=== PATIENT | female | born 1970 | race Caucasian/White ===

== ENCOUNTER 2016-09-17 23:45 | Observation (INO) | payer OTHER ==
[~2016-09-17 23:45] MED LIST: BP MED; CIPRO500 M2 PO; HYDROCHLOROTHIA25 M1 PO; NORCO 5-325 TA1 EACH PO; PERCOCET 5-3251 EACH PO
[2016-09-18 00:26] LABS: BASO % 0.3 % (0-2); EOS % 0.9 % (0-7); EOSINOPHIL ABSOLUTE COUNT 0.1 tho/cmm (0.0-0.7); HCT-HEMATOCRIT 29.8 % (34.0-49.0); IMMATURE GRANULOCYTES ABSOLUTE 0.02 tho/cmm (0-0.03); IMMATURE GRANULOCYTES PERCENT 0.2 % (0-0.3); LYMPH % 23.8 % (20-45); LYMPH ABSOLUTE COUNT 2.8 tho/cmm (0.8-4.5); MCHC MEAN CORPUSCULAR HGB CONC 30.2 % (32.0-36.0); MCV (MEAN CELL VOLUME) 63.7 fl (82.0-96.0); MONOCYTE ABSOLUTE COUNT 0.5 tho/cmm (0.0-1.2); NEUTROPHIL ABSOLUTE COUNT 8.2 tho/cmm (1.6-8.0); NEUTROPHIL-AUTOMATED 8.2 tho/cmm (1.6-8.0); NEUTROPHILS % 70.8 % (40-80); PLATELET COUNT 430 tho/cmm (150-450); RED BLOOD COUNT 4.68 mil/cmm (4.00-5.20); RED CELL DISTRIBUTION WIDTH 18.9 % (12.4-16.4); WHITE BLOOD COUNT 11.6 tho/cmm (4.0-10.0)
[2016-09-18 00:27] LABS: MCH (MEAN CORPUSCULAR HGB) 19.2 pg (28.0-32.0)
[2016-09-18 00:41] LABS: ALB/GLOB RATIO 0.9 (0.8-2.0); ALBUMIN 3.4 g/dl (3.5-5.0); ALKALINE PHOSPHATASE 54 U/L (33-138); ALT/SGPT 19 U/L (12-78); BILIRUBIN,TOTAL 0.3 mg/dl (0-1.5); BLOOD UREA NITROGEN 12 mg/dl (6-24); CALCIUM 8.3 mg/dl (8.5-10.5); CARBON DIOXIDE-VENOUS 26 mmol/L (22-32); CHLORIDE 105 mmol/l (96-110); CREATININE 1.05 mg/dl (0.50-1.10); GLUCOSE 108 mg/dL (70-110); LIPASE 60 U/L (73-393); SODIUM 140 mmol/L (135-145); eGFR VALUE FOR BLACK 74 mL/Min
[2016-09-18 00:43] LABS: ANION GAP 13 mmol/L (0-20); AST/SGOT 18 U/L (10-40); POTASSIUM 3.5 mmol/L (3.7-5.1)
[2016-09-18 02:28] LABS: URINE BILIRUBIN NEGATIVE (NEG); URINE BLOOD LARGE (NEG); URINE GLUCOSE (UA) NEGATIVE (NEG); URINE KETONE NEGATIVE (NEG); URINE LEUKOCYTE ESTERASE NEGATIVE (NEG); URINE NITRITE NEGATIVE (NEG); URINE PROTEIN SMALL (NEG)
[2016-09-18 02:36] LABS: URINE APPEARANCE HAZY; URINE COLOR YELLOW
[2016-09-18 02:40] LABS: URINE BACTERIA 1+; URINE EPITHELIAL CELLS 0-3 /[HPF] (0-10); URINE RBC 20-30 /[HPF] (0-5); URINE WBC RARE /[HPF] (0-5)
[2016-09-18 04:35] LABS: PROCALCITONIN <0.05 ng/ml (0.05-0.09)
[2016-09-18 04:50] LABS: C-REACTIVE PROTEIN <0.3 mg/dl (0-0.9)
[2016-09-18 08:58] LABS: BASO % 0.1 % (0-2); HCT-HEMATOCRIT 31.7 % (34.0-49.0); HGB-HEMOGLOBIN 9.6 gm/dl (12.0-15.5); IMMATURE GRANULOCYTES ABSOLUTE 0.01 tho/cmm (0-0.03); IMMATURE GRANULOCYTES PERCENT 0.1 % (0-0.3); LYMPH % 12.8 % (20-45); LYMPH ABSOLUTE COUNT 1.1 tho/cmm (0.8-4.5); MCH (MEAN CORPUSCULAR HGB) 19.4 pg (28.0-32.0); MCHC MEAN CORPUSCULAR HGB CONC 30.3 % (32.0-36.0); MCV (MEAN CELL VOLUME) 63.9 fl (82.0-96.0); MEAN PLATELET VOLUME 8.9 cmc (9.4-12.4); MONO % 0.6 % (0-12); MONOCYTE ABSOLUTE COUNT 0.1 tho/cmm (0.0-1.2); NEUTROPHIL ABSOLUTE COUNT 7.1 tho/cmm (1.6-8.0); NEUTROPHIL-AUTOMATED 7.1 tho/cmm (1.6-8.0); NEUTROPHILS % 86.4 % (40-80); PLATELET COUNT 466 tho/cmm (150-450); RED BLOOD COUNT 4.96 mil/cmm (4.00-5.20); WHITE BLOOD COUNT 8.2 tho/cmm (4.0-10.0)
[2016-09-18 09:13] LABS: ANION GAP 10 mmol/L (0-20); BLOOD UREA NITROGEN 8 mg/dl (6-24); CALCIUM 8.1 mg/dl (8.5-10.5); CARBON DIOXIDE-VENOUS 25 mmol/L (22-32); CHLORIDE 109 mmol/l (96-110); CREATININE 0.88 mg/dl (0.50-1.10); GLUCOSE 118 mg/dL (70-110); POTASSIUM 4.2 mmol/L (3.7-5.1); SODIUM 140 mmol/L (135-145); eGFR VALUE FOR BLACK >90 mL/Min
== END 2016-09-19 12:40 ==
LOC: EDMED 23:45 → EMR2 09-18 03:46 → CAR1 09-18 04:04
PROVIDERS: Emergency Medicine; Internal Medicine; Registered Nurse; ADMIT Hospitalist
DX: K52.9 Noninfective gastroenteritis and colitis, unspecified (principal); K56.7 Ileus, unspecified; I10 Essential (primary) hypertension; Z79.899 Other long term (current) drug therapy
CPT/HCPCS: C9113; G0378; J1170; J2270; J2405; J7030; Q9967